=== PATIENT | female | born 1945 | race Caucasian/White ===

== ENCOUNTER 2017-06-05 21:06 | Inpatient (IN) | payer MEDICARE ==
[~2017-06-05] VITALS: Ht 162.6 cm; Wt 48.1 kg
[2017-06-05] MEDS ORDERED: ASPIRIN 81 MG CHEW TAB PO ONE (21:30)
[2017-06-05 22:01] LABS: BASOPHILS % 0.4 % (0.0-1.0); HEMATOCRIT 37.8 % (34.2-44.1); HEMOGLOBIN 12.2 g/dL (12.0-16.0); LYMPHOCYTES # (AUTO) 0.8 (1.0-3.2); LYMPHOCYTES % 8.9 % (18.0-39.1); MEAN CORPUSCULAR HEMOGLOBIN 29.4 pg (28-32); MEAN CORPUSCULAR HGB CONC 32.3 g/dL (31-35); MEAN CORPUSCULAR VOLUME 91.1 fL (81-99); MONOCYTES # (AUTO) 0.8 (0.2-0.8); MONOCYTES % 9.8 % (4.4-11.3); NEUTROPHILS # (AUTO) 6.8 (2.1-6.9); NEUTROPHILS % 80.4 % (38.7-80.0); PLATELET COUNT 221 x10e3/uL (140-360); RED BLOOD COUNT 4.15 x10e6/uL (3.6-5.1); RED CELL DISTRIBUTION WIDTH 13.2 % (11.7-14.4)
[2017-06-05 22:10] LABS: INR 1.02; PARTIAL THROMBOPLASTIN TIME 33.5 seconds (23.8-35.5); PROTHROMBIN TIME 13.9 seconds (11.9-14.5)
[2017-06-05 22:20] LABS: ALANINE AMINOTRANSFERASE 9 IU/L (0-55); ALBUMIN 3.1 g/dL (3.5-5.0); ALBUMIN/GLOBULIN RATIO 0.6 (0.8-2.0); ALKALINE PHOSPHATASE 104 IU/L (40-150); ANION GAP 13.7 mmol/L (8-16); BLOOD UREA NITROGEN 10 mg/dL (7-26); BUN/CREATININE RATIO 12 (6-25); CARBON DIOXIDE 24 mmol/L (22-29); CHLORIDE 98 mmol/L (98-107); CREATINE KINASE 103 IU/L (29-168); CREATININE, SERUM 0.86 mg/dL (0.57-1.11); EST GLOMERULAR FILTRATION RATE > 60 ML/MIN (60-); GLUCOSE 116 mg/dL (74-118); MAGNESIUM 1.4 MG/DL (1.3-2.1); POTASSIUM 3.7 mmol/L (3.5-5.1); SODIUM 132 mmol/L (136-145)
--- NOTE | 2017-06-05 22:24 | Diagnostic Imaging Report ---
EXAMINATION: Head CT without contrast. HISTORY:Fall. COMPARISON:None. TECHNIQUE: Multidetector axial images were obtained from the foramen magnum to the vertex without contrast. The images were reconstructed using brain and bone algorithms. Thin section brain images were reformatted into coronal and sagittal planes. Intravenous contrast: None IMAGE QUALITY: Acceptable. FINDINGS: Skull/scalp: No abnormality. Parenchyma: Nonspecific bilateral frontoparietal patchy white matter hypodensity are likely related to small vessel ischemic changes. Focal hypodensity in right thalamocapsular region represents age indeterminate lacunar infarct. Age indeterminate possible chronic lacunar infarct in anterior aspect of the body of right caudate. No acute hemorrhage, mass or acute major vascular territorial infarct. Arteries: Atherosclerotic calcification in bilateral carotid siphon. Dural sinuses: No abnormal density suggestive of thrombosis. Ventricles: No hydrocephalus or displacement. Extra-axial spaces: No abnormal density. Brain volume: Normal for age. Craniocervical junction: No mass, Chiari malformation, or basilar invagination. Sella: No mass. Paranasal/mastoid sinuses: Imaged portions unremarkable. IMPRESSION: 1. Age indeterminate lacunar infarct in right thalamocapsular region. Age indeterminate possible chronic lacunar infarct in right caudate. 2. Mild supratentorial white matter microvascular ischemic changes. 3. Mild generalized cerebral volume loss. Signed by: Dr. Dorinda Barrientos M.D. on 06/05/2017 10:20 PM
[2017-06-05 22:26] LABS: TROPONIN I 0.033 ng/mL (0-0.300)
--- NOTE | 2017-06-05 22:30 | Diagnostic Imaging Report ---
History: Fall. Comparison studies: None Technique: Axial images were obtained through the cervical region.. Coronal and sagittal images reconstructed from the axial data.. Intravenous contrast: None Findings: Fractures: None. Soft tissue injuries: None. Atlantoaxial articulation: Intact. Alignment: Normal lordosis. No scoliosis. Cervicomedullary junction: No abnormalities. The foramen magnum is patent. Soft tissues: No abnormalities. Vertebrae: No fractures, infection or neoplasm. Degenerative changes: Moderate degenerative changes in the anterior atlantodental joint. C3-C4: Posterior disc osteophyte complex results in mild canal stenosis. Moderate bilateral facet arthrosis without significant foraminal stenosis. C4-C5: Posterior disc osteophyte complex results in moderate canal stenosis. Mild right and moderate left foraminal stenosis due to facet and uncovertebral arthrosis. C5-C6: Posterior disc osteophyte complex without significant canal stenosis. Severe right foraminal stenosis due to facet and uncovertebral arthrosis. C7-T1: Bilateral mild foraminal stenosis due to facet and uncovertebral arthrosis. IMPRESSION: 1. No acute cervical spine abnormalities. 2. Ligament, spinal cord and or vascular abnormalities cannot be excluded on the basis of this examination. 3. Cervical spondylosis as detailed above. Signed by: Dr. Dorinda Barrientos M.D. on 06/05/2017 10:27 PM
--- NOTE | 2017-06-05 22:56 | Diagnostic Imaging Report ---
PELVIS AP 1-2 VIEWS HISTORY: Status post fall COMPARISON: None FINDINGS: Bones: Nondisplaced linear lucencies noted involving the medial aspect of the right inferior pubic ramus as well as the lateral aspect of the symphysis pubis. Osseous alignment is within normal limits. Joints: The joint spaces are well-maintained. Soft tissues: The soft tissues appear unremarkable. IMPRESSION: Findings are concerning for right-sided nondisplaced fracture of the right inferior pubic ramus and right symphysis pubis Signed by: Dr. Flako Cornejo M.D. on 06/05/2017 10:52 PM
--- NOTE | 2017-06-05 22:57 | Diagnostic Imaging Report ---
HUMERUS RIGHT 2+VIEWS HISTORY: Status post fall COMPARISON: None FINDINGS: Bones: No displaced fracture. Osseous alignment is within normal limits. Joints: The joint spaces are well-maintained. Soft tissues: There is soft tissue laceration/defect noted at the lateral aspect of the mid right arm. IMPRESSION: 1. No acute osseous abnormality. 2. Large soft tissue laceration/defect noted at the mid right arm Signed by: Dr. Flako Cornejo M.D. on 06/05/2017 10:53 PM
--- NOTE | 2017-06-05 22:58 | Diagnostic Imaging Report ---
EXAMINATION: CHEST 2 VIEWS INDICATION: Cough. COMPARISON: None FINDINGS: TUBES and LINES: None. LUNGS: Lungs are well inflated. Focal patchy airspace opacities noted in the right lung base and left midlung. PLEURA: No pleural effusion or pneumothorax. HEART AND MEDIASTINUM: The cardiomediastinal silhouette is unremarkable. There are atherosclerotic calcifications within the aorta. BONES AND SOFT TISSUES: No acute osseous lesion. Soft tissues are unremarkable. UPPER ABDOMEN: No free air under the diaphragm. IMPRESSION: Findings are suspicious for multifocal pneumonia. Follow-up until resolution after treatment is recommended to exclude underlying chronic process or neoplasm. Signed by: Dr. Flako Conrejo M.D. on 06/05/2017 10:55 PM
[2017-06-05 23:53] LABS: BILIRUBIN,URINE 1+ (NEGATIVE); KETONES,URINE 1+ (NEGATIVE); LEUKOCYTE ESTERASE ,URINE TRACE (NEGATIVE); NITRITE,URINE NEGATIVE (NEGATIVE); URINE UROBILINOGEN 1 mg/dL (0.2 - 1)
[2017-06-05 23:58] LABS: CLARITY,URINE SL CLOUDY (CLEAR); COLOR,URINE AMBER (YELLOW); PROTEIN,URINE DIPSTICK 1+ (NEGATIVE)
[2017-06-06] VITALS (7 sets, daily range): BP systolic 107–151; BP diastolic 55–71
[2017-06-06 00:04] LABS: BACTERIA,URINE FEW /HPF; EPITHELIAL CELLS,URINE FEW /LPF
[2017-06-06] MEDS: VANCOMYCIN 1GM/NS 250 ML 250 ML IV SCH ×3 (00:30→10:00)
--- NOTE | 2017-06-06 00:46 | Diagnostic Imaging Report ---
EXAM: CT Chest WITHOUT contrast 06/05/2017 11:29 PM INDICATION: Pneumonia versus mass COMPARISON: Chest x-ray on 06/05/2017 TECHNIQUE: Chest was scanned utilizing a multidetector helical scanner from the lung apex through the level of the adrenal glands without administration of IV contrast. Absence of intravenous contrast decreases sensitivity for detection of lymphadenopathy and vascular pathology. Coronal and sagittal reformations were obtained. Routine protocol was performed. IV CONTRAST: None RADIATION DOSE: Total DLP: 481.30 mGy*cm Estimated effective dose: (DLP x 0.014 x size factor) mSv COMPLICATIONS: None FINDINGS: LINES/ TUBES: None. LUNGS AND AIRWAYS: Centrilobular emphysema present with upper lobe predominance There are a total of 3 well-circumscribed pulmonary nodules, the largest center in the left upper lobe measuring 2 cm in diameter with spiculated margins. There is a right lower lobe, superior segment nodule measuring 1.5 cm in diameter in the subpleural location. There is a right middle lobe pulmonary nodule measuring 1.4 cm in diameter in the lateral segment. Airways are normal. PLEURA: The pleural spaces are clear. HEART AND MEDIASTINUM: The thyroid gland is normal. Right lower paratracheal adenopathy measuring 1.4 cm in short axis on image 55. The heart is normal in size.. There is no pericardial effusion. There are moderate atherosclerotic calcifications in the aorta and coronary arteries. UPPER ABDOMEN: Limited non-contrast views of the upper abdomen show no abnormality within the visualized liver, spleen, pancreas, or kidneys. The adrenal glands are normal. BONES: There are degenerative changes in the thoracic spine. SOFT TISSUES: Unremarkable. IMPRESSION: 1. Findings in the chest are compatible with multifocal pulmonary nodules suspicious for neoplasm in this patient with background of COPD. The largest pulmonary nodule is located in the left upper lobe. 2. No evidence of pneumonia. Signed by: Dr. Flako Cornejo M.D. on 06/06/2017 12:43 AM
[2017-06-06] MEDS: PIPER-TAZ 3.375 GM 50 ML IV SCH ×4 (01:15→21:53)
[2017-06-06] MEDS ORDERED: PIPERACILLIN/TAZO 4.5 GM 100 ML IV ONE (01:15)
[2017-06-06] MEDS ORDERED: DEXTROSE 5%/0.45% SOD CHL 1,000 ML IV ONE (02:15)
[2017-06-06] MEDS: IPRATROPIUM BROMIDE 0.02% 2.5 ML NEB NEB SCH ×4 (04:05→18:50)
[2017-06-06] MEDS: ALBUTEROL SULF 0.083% NEB SOLN 3 ML NEB NEB SCH ×4 (04:05→18:50)
[2017-06-06] MEDS ORDERED: PIPER-TAZ 3.375 GM 100 ML IV SCH ×2 (06:30→14:00)
[2017-06-06] MEDS: AZITHROMYCIN 500MG/NS 250 ML 250 ML IV SCH ×2 (08:30)
[2017-06-06 09:00] LABS: TROPONIN I 0.049 ng/mL (0-0.300)
[2017-06-06 10:25] LABS: CHOL/HDL RATIO 3.9 (3.0-3.6)
--- NOTE | 2017-06-06 10:43 | History and Physical ---
PRIMARY CARE PHYSICIAN: None CHIEF COMPLAINT: Fall. HISTORY OF PRESENT ILLNESS: A 72-year-old woman with a history of tobacco abuse, who has not seen a doctor in over 10 years. Does not have a primary care physician. Now, falling on 2 occasions at home. Therefore, brought to the hospital by her daughter. Patient was found to have subacute versus chronic stroke, unclear. She was found to have a urinary tract infection. Imaging also revealed multiple lung nodules as large as 2 cm. She has lost 10 pounds of undetermined length of time. She continues to smoke cigarettes, about a quarter pack a day. Patient also found to have right upper arm wound, which she states she has had for the past 4 years, and has hidden from her [id number] who is present in the room and from her son. Patient has also been coughing the past few days. PAST MEDICAL HISTORY: Right upper arm wound, ongoing for about 4 years, tobacco abuse. PAST SURGICAL HISTORY: Unknown. ALLERGIES: PER ELECTRONIC MEDICAL RECORD. FAMILY HISTORY/SOCIAL HISTORY: Patient is single. She lives with her son and [id number]. No alcohol. She smokes a quarter pack of cigarettes per day. She has a family history of colon cancer in her sister recently diagnosed. MEDICATIONS: None. REVIEW OF SYSTEMS: Denies any chest pain or shortness of breath. PHYSICAL EXAMINATION VITAL SIGNS: Have been reviewed. GENERAL: A tired-appearing woman resting in bed. HEENT: Anicteric. CARDIOVASCULAR: Normal S1 and S2. LUNGS: She has coarse breath sounds. Coughing with deep inspiration. ABDOMEN: Soft, nontender and nondistended. EXTREMITIES: She has right upper arm lateral border with large and deep ulcer with pink tissue, tender. No odor. Also, wound at least 4 inches wide. Lower extremities with no edema. She has some bruising of the right knee. SKIN: Dry. PSYCHIATRIC: Flat affect. NEUROLOGICAL: Alert and oriented times 3. Moving all extremities. LABS: Reviewed. MEDICATIONS: Reviewed. ASSESSMENT AND PLAN: A 72-year-old woman with: 1. Fall: Likely secondary to urinary tract infection, but could be secondary to acute stroke. Will get physical therapy on board. 2. Subacute versus acute stroke: Will obtain an MRI to further evaluate. Will obtain lipid panel. 3. Multiple lung nodules as large as 2 cm: Will get radiology on board for biopsy. Will consult pulmonary services to assist in management. 4. Acute bronchitis: Continue azithromycin. 5. Right arm large wound: Will get wound culture. Will continue Zosyn and vancomycin. Will get surgical team on board for evaluation and specialist physician on board to assist in management. 6. Urinary tract infection: Continue Zosyn. 7. Physical deconditioning: Physical therapy consultation. 8. Prophylaxis: Will use sequential compression devices. 9. Disposition: As noted above, continue antibiotics and follow up cultures. Obtain MRI of the brain. Job#: [id number] RI
[2017-06-06] MEDS ORDERED: LIDOCAINE 1% 5ML-MPF INJ ONE (11:15)
[2017-06-06] MEDS: TRAMADOL HCL 50 MG TAB PO PRN ×2 (12:32→23:10)
--- NOTE | 2017-06-06 15:33 | Consultation ---
DATE OF CONSULTATION: June 06, 2017 REASON FOR CONSULTATION: Evaluate and assist in the management of a patient with COPD and a right arm wound. Information is gathered from the current medical record. I interviewed the patient at the bedside. She is a 72-year-old female who gives no significant medical history, except that according to her she developed a mole over the right upper arm about 5 years ago, which she has manipulating. It ulcerated. The ulcer had gotten progressively bigger. Recently, it has become painful associated with bleeding. There has been no fevers, which prompted her to come with the family to the emergency room for evaluation. The patient also reports that she has a chronic cough, which has gotten worse recently. For the most part, it is nonproductive. There is no associated chest pain. In the emergency room, she was found with a temperature of 99.9 degrees Fahrenheit, pulse rate of 119, respiratory rate of 18, and blood pressure of 107/59. Her CBC showed a white count of 8.5, hemoglobin 12.2 and platelet count 221,000. Serum creatinine was found to be 0.8. She had blood and urine cultures sent. She was started on azithromycin, vancomycin and Zosyn. The patient denies any history of diabetes, hypertension, cardiac, renal, liver disease. She is not aware of the diagnosis with COPD. SOCIAL HISTORY: She has been smoking since the age of 16. She denies alcohol abuse. She denies other forms of recreational drug use. The family reports that she is fairly independent. The patient reports that she has hidden the wound from her family all this time. FAMILY HISTORY: Noncontributory to her current hospitalization. ALLERGIES: SHE HAS NO KNOWN ALLERGIES. As reported earlier, she is on azithromycin, vancomycin and Zosyn. The rest of her medications are per the medication administration report. REVIEW OF SYSTEMS: The patient is alert. Her sensorium is clear. She has a productive sounding cough. No respiratory distress at rest. No headache or neck stiffness. No sore throat. No visual or auditory complaints. No chest or abdominal pain. No nausea, vomiting or diarrhea. No frequency or dysuria. There is pain in the right arm. PHYSICAL EXAMINATION GENERAL: She is an adult woman. She is alert and responsive. She appears frail. She is in no acute distress. VITALS: Maximum temperature was at presentation of 99.9 degrees Fahrenheit, temperature currently 97.3. She is hemodynamically stable. HEENT: There is no pallor. No icterus. No oropharyngeal lesions. NECK: Supple. CHEST: Symmetric. There is rhonchi in the lung [place] bilaterally. HEART: Sounds are regular without any significant murmur. ABDOMEN: Soft and nontender with normal bowel sounds. EXTREMITIES: There is no acute erythema of the lower extremities or the left upper extremity. There is a fungating ulcer involving the right upper arm. The periphery of the wound has gangrenous necrotic slough. There is persistent bleeding from the base of the wound. Her creatinine is 0.8 from June 05, 2017. Liver function tests are unremarkable. Her white count is 8.5, hemoglobin 12.2 and platelet count 221,000. Differential on the white count is 80% neutrophils on an automated differential. Blood and urine cultures are pending. CT of the chest reports multifocal pulmonary nodules suspicious for neoplasm. There is a background of COPD. No evidence of pneumonia. CT of the brain shows age indeterminate lacunar infarct in the right thalamic capsular region. There is mild supratentorial white matter microvascular ischemic changes. There is mild generalized cerebral volume loss. Plain film of the humerus reports no acute osseous abnormality. There is a large soft tissue defect in the midright arm. IMPRESSION: This 72-year-old woman has a fungating ulcer on the right arm with gangrenous circumferential borders. It is highly suspicious for malignancy. Superimposed infection cannot be ruled out. She has chronic obstructive pulmonary disease with exacerbation. I suggest the regimen of vancomycin, Zosyn and azithromycin is appropriate. Follow up on her cultures. She needs urgent surgical evaluation for biopsy of the right arm lesion and possibly the lung lesions. Monitor temperature, CBC and renal function. Continue local wound care. I have discussed the findings and treatment with the patient and her family at the bedside. I will discuss the patient with the primary physician who I thank for this consult, and opportunity to participate in the patient's care. Job#: [id number] SELINA
--- NOTE | 2017-06-06 16:01 | Consultation ---
DATE OF CONSULTATION: June 06, 2017 WOUND CONSULTATION Thank you Dr. Hsieh for asking me to see this patient. A 72-year-old female patient admitted following a fall. Routine evaluation revealed multiple lung nodules. The largest was 1 cm. She also has nonhealing chronic ulcer to the right arm, ongoing for 4 years. Wound consult was called. PAST MEDICAL HISTORY: Right arm ulcer. PAST SURGICAL HISTORY: Unknown. ALLERGIES: NONE. MEDICATIONS: None. PHYSICAL EXAMINATION GENERAL: Awake, alert. HEENT: Normal. NECK: Normal. LUNGS: Clear. CVS: Normal. ABDOMEN: Soft. Bowel sounds normal. EXTREMITIES: Lower extremities with no edema. 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 ASSESSMENT : Right arm ulcer most likely malignant ulcer. PLAN: Will consider biopsy of the right arm wound. Apply Hydrogel, 4 x 4, Kerlix and tape. Job#: [id number]
[2017-06-06 16:56] LABS: CREATINE KINASE MB 1.3 ng/mL (0.00-5.00); TROPONIN I 0.035 ng/mL (0-0.300)
--- NOTE | 2017-06-06 17:03 | Diagnostic Imaging Report ---
Exam: Brain MRI without IV contrast History: Acute versus chronic CVA, multiple falls over past several days. Comparison studies: Head CT 06/05/2017 Technique: Sagittal T2; axial DWI, FLAIR, T2*GRE, T1, Coronal T2 FLAIR. Intravenous contrast: None Findings: Scalp: Normal in signal . No masses . Bone marrow: Normal in signal intensity. Brain sulci: Mildly prominent. Ventricles: Mild compensatory dilatation. No hydrocephalus. Extra axial spaces: No mass, no fluid collection. Parenchyma: No masses, hemorrhage or acute ischemia. There are small chronic lacunar infarcts in the right thalamus and in the right frontal periventricular white matter adjacent to the body of the right caudate nucleus. A few scattered and mildly confluent T2 FLAIR hyperintense foci in the supratentorial white matter are nonspecific but most compatible with chronic small vessel ischemic changes. Suprasellar region: No abnormalities. Craniocervical junction: Patent foramen magnum. No Chiari malformation. Vessels: Normal flow-voids in the arteries and sinuses. Incidental finds: Nonspecific marrow signal changes in the partially imaged posterior right mandibular body. Cannot differentiate reactive changes, possibly related to endodontal periodontal disease from other mandibular lesion on this exam. IMPRESSION: 1. No acute intracranial abnormalities. Specifically, no acute ischemia. 2. Mild supratentorial chronic microvascular ischemic changes. 3. Chronic lacunar infarcts in the right thalamus and deep right frontal white matter adjacent to the right caudate nucleus. 4. Nonspecific indeterminant marrow signal changes in the partially imaged right mandible. Nonemergent maxillofacial CT may further evaluate. Signed by: Dr. Conrado Orlando M.D. on 06/06/2017 4:59 PM
--- NOTE | 2017-06-06 17:59 | Consultation ---
DATE OF CONSULTATION: June 06, 2017 PULMONARY/CRITICAL CARE CONSULTATION REFERRING PHYSICIAN: Dr. Cipriano Hsieh CHIEF COMPLAINT: Pulmonary nodules. HISTORY OF PRESENT ILLNESS: The patient is a 72-year-old woman. She came into the hospital after frequent falling. She was evaluated by neurology and considered to have a possible stroke. She had an MRI, but is awaiting the results. She had an incidental finding of pulmonary nodules. Her CT scan shows 3 separate pulmonary nodules as well as a large right paratracheal node. The largest nodule is in the left upper lobe and measures 2 cm. There is also 2 smaller nodules measuring 1.4 and 1.5 cm in the right lower lobe and right middle lobe respectively. Patient reports a 10 to 15 pound weight loss. There is some cough but no aide hemoptysis. The patient does not have any fevers. She was also found to have a deep fungating sore on the right upper arm. This was suspicious for cancer and she had a biopsy done today. PAST MEDICAL HISTORY: Right upper arm wound. Possible COPD. PAST SURGICAL HISTORY: Noncontributory. ALLERGIES: THERE ARE NO KNOWN DRUG ALLERGIES. FAMILY HISTORY: There is a history of colon cancer in the family. SOCIAL HISTORY: The patient is a lifelong smoker. She is not a drinker. REVIEW OF SYSTEMS: She does have some weight loss. She has no fevers. There is no headache. She has no neck pain. She has no chest pain. She has no congestion. She has no abdominal pain. There is no nausea or vomiting. She has no leg edema. She does have a bandaged sore on the upper arm. PHYSICAL EXAMINATION: VITAL SIGNS: The patient is afebrile. Blood pressure is 120/58. The O2 saturation 97%. HEENT: Examination shows no facial swelling or erythema. The nasal mucosa is normal. The oropharynx is normal. LYMPHATIC: Examination shows no submandibular, cervical or supraclavicular adenopathy. NECK: Examination of neck shows no JVD or thyromegaly. No nuchal rigidity. CARDIAC: Exam reveals a regular rate and rhythm with normal S1 and S2. There are no murmurs or rubs. LUNGS: Shows clear breath sounds bilaterally. There is no wheezing. ABDOMEN: Soft and nontender. There is no rebound or guarding. EXTREMITIES: Shows no leg edema or calf tenderness. There is no cyanosis or clubbing. NEUROLOGIC: Exam shows no focal abnormalities. SKIN: Examination shows no rashes. IMPRESSION 1. Pulmonary nodules in both lungs suggestive of possible metastatic disease. 2. Frequent falling and possible cerebrovascular accident. 3. Deep fungating ulcer on the right upper extremity suggestive for some type of malignancy. RECOMMENDATIONS: 1. We will await the biopsy result from the arm and the MRI results of the head prior to proceeding further. 2. If the arm biopsy does show a sarcoma or a melanoma, that could be the source of the metastatic disease. 3. If the biopsy shows a squamous cell carcinoma or basal cell carcinoma, then a lung biopsy would probably be indicated. 4. I discussed this with the family, the patient and with Dr. Hsieh. Job#: [id number] REBECCA
[2017-06-07] VITALS (7 sets, daily range): BP systolic 105–147; BP diastolic 51–62
[2017-06-07] MEDS: ALBUTEROL SULF 0.083% NEB SOLN 3 ML NEB NEB SCH ×5 (01:00→19:40)
[2017-06-07] MEDS: IPRATROPIUM BROMIDE 0.02% 2.5 ML NEB NEB SCH ×5 (01:00→19:40)
[2017-06-07] MEDS: PIPER-TAZ 3.375 GM 50 ML IV SCH ×3 (06:15→21:30)
[2017-06-07 07:54] LABS: BASOPHILS % 0.3 % (0.0-1.0); EOSINOPHILS % 0.2 % (0.0-6.0); HEMATOCRIT 32.6 % (34.2-44.1); HEMOGLOBIN 10.5 g/dL (12.0-16.0); LYMPHOCYTES % 16.4 % (18.0-39.1); MEAN CORPUSCULAR HEMOGLOBIN 30.3 pg (28-32); MEAN CORPUSCULAR HGB CONC 32.2 g/dL (31-35); MEAN CORPUSCULAR VOLUME 93.9 fL (81-99); MONOCYTES # (AUTO) 0.9 (0.2-0.8); MONOCYTES % 13.7 % (4.4-11.3); NEUTROPHILS # (AUTO) 4.3 (2.1-6.9); NEUTROPHILS % 69.2 % (38.7-80.0); PLATELET COUNT 168 x10e3/uL (140-360); RED BLOOD COUNT 3.47 x10e6/uL (3.6-5.1); RED CELL DISTRIBUTION WIDTH 13.4 % (11.7-14.4)
[2017-06-07 08:17] LABS: ALANINE AMINOTRANSFERASE 11 IU/L (0-55); ALBUMIN 2.4 g/dL (3.5-5.0); ALBUMIN/GLOBULIN RATIO 0.6 (0.8-2.0); ALKALINE PHOSPHATASE 81 IU/L (40-150); ANION GAP 12.7 mmol/L (8-16); BLOOD UREA NITROGEN 8 mg/dL (7-26); BUN/CREATININE RATIO 12 (6-25); CALCIUM 8.1 mg/dL (8.4-10.2); CARBON DIOXIDE 23 mmol/L (22-29); CHLORIDE 103 mmol/L (98-107); CREATININE, SERUM 0.68 mg/dL (0.57-1.11); EST GLOMERULAR FILTRATION RATE > 60 ML/MIN (60-); GLUCOSE 87 mg/dL (74-118); POTASSIUM 3.7 mmol/L (3.5-5.1); SODIUM 135 mmol/L (136-145)
[2017-06-07] MEDS: AZITHROMYCIN 500MG/NS 250 ML 250 ML IV SCH (08:56)
--- NOTE | 2017-06-07 09:22 | Progress Note ---
DATE: June 07, 2017 TIME: 9 a.m. OVERNIGHT: Underwent biopsy of the right arm ulcer. REVIEW OF SYSTEMS: Denies any dizziness. VITAL SIGNS: Reviewed. PHYSICAL EXAMINATION GENERAL: A tired-appearing woman resting in bed. HEENT: Anicteric. CARDIOVASCULAR: Normal S1 and S2. LUNGS: Moderate breath sounds. Coarseness of breath sounds has improved to some degree. ABDOMEN: Soft, nontender and nondistended. EXTREMITIES: Right upper arm with lateral border large ulcer. Dressing in place. There is no odor. SKIN: Dry. PSYCHIATRIC: Flat affect. NEUROLOGICAL: Alert and oriented times 3. Moving all extremities. LABS: Reviewed. MEDICATIONS: Reviewed. ASSESSMENT AND PLAN: A 72-year-old woman. 1. Fall. 2. Subacute versus acute stroke. 3. Multiple lung nodules, largest 2 cm. 4. Right arm large wound, status post biopsy. 5. Acute bronchitis. 6. Urinary tract infection. 7. Physical deconditioning. 8. Right mandible nonspecific, indeterminate signal seen on MRI imaging. PLAN 1. All cultures are negative. 2. Continue IV Zosyn, IV vancomycin and IV azithromycin. 3. Follow up biopsy on the right arm ulcer. 4. MRI of the brain shows no acute abnormalities. Chronic lacunar infarcts, right thalamus and deep right frontal white matter and right caudate nucleus lacunar infarcts noted. 5. Nonspecific, indeterminate signal seen at the right mandible. Job#: [id number]
[2017-06-07] MEDS: TRAMADOL HCL 50 MG TAB PO PRN ×2 (09:48→18:03)
[2017-06-07] MEDS: VANCOMYCIN 1GM/NS 250 ML 250 ML IV SCH (10:20)
--- NOTE | 2017-06-07 11:30 | Consultation ---
DATE OF CONSULTATION: June 07, 2017 Patient is a 72-year-old female who was admitted to the hospital after a fall. She has been found to have a large wound on the right upper arm with multiple pulmonary nodules. She says she started with a small lesion on the arm many years ago, and has gradually increased in size. Biopsy were done, results of which are pending. She is also scheduled to have lung biopsy. PAST MEDICAL HISTORY: Significant for tobacco use, large right upper arm wound. ALLERGIES: SHE HAS NO KNOWN ALLERGIES. MEDICATIONS: Are listed in the chart. No previous surgeries. FAMILY HISTORY: Significant for carcinoma of the colon. SOCIAL HISTORY: The patient is a life-long smoker. She does not drink alcohol. REVIEW OF SYSTEMS: Significant for a small amount of weight loss. No abdominal pain. No chest pain. PHYSICAL EXAMINATION GENERAL: The patient is awake and alert. VITAL SIGNS: Normal. HEENT: Revealed no scleral icterus. NECK: Has no masses. LUNGS: Equal breath sounds. Clear bilaterally. CARDIAC: Regular rate and rhythm. ABDOMEN: Soft. There is no tenderness. No mass. EXTREMITIES: On the right upper arm, there is a large ulcerated area with granulation tissue. There is no right axillary lymphadenopathy. NEUROLOGIC: Grossly intact. ASSESSMENT: A 72-year-old female with an ulcerated lesion on the right upper arm. It is most likely carcinoma. 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 Biopsies have been done. Results are pending. Patient likely will need evaluation by oncology. Then she may require excision of this ulcerated area on the arm with skin graft. Thank you for asking me to see Ms. Berger. Job#: [id number] SELINA
[2017-06-07] MEDS ORDERED: SODIUM CHLORIDE 0.9% 250ML 250 ML ONE (14:10)
--- NOTE | 2017-06-07 14:11 | Progress Note ---
DATE: June 07, 2017 INFECTIOUS DISEASE PROGRESS NOTE The patient is resting quietly. She has a productive cough. No dyspnea at rest. No nausea, vomiting, or diarrhea. No other systemic complaints reported. PHYSICAL EXAMINATION VITALS: In the past 24 hours, maximum temperature was up to 99.1 degrees Fahrenheit. She is stable hemodynamically. HEENT: There is no gross pallor. No obvious icterus. No oropharyngeal lesions. NECK: Supple. CHEST: Symmetric. Breath sounds are coarse in the lung [place]. HEART: Sounds are regular. There is no new murmur. ABDOMEN: Soft. Bowel sounds are present. EXTREMITIES: No acute erythema of the extremities. The right arm wound dressing is intact and clean. Her white count is 6.2, hemoglobin 10.5, platelet count 168. Her creatinine is 0.6. Blood cultures from June 05, 2017 are negative. Urine culture is negative. IMPRESSION: She has chronic obstructive pulmonary disease with exacerbation. She has a fungating wound of the right upper arm, suspicious for malignancy. I am told by the nursing staff and family at the bedside that a biopsy was obtained yesterday, no report is yet available. There is an MRI of her brain from June 06, 2017 that reported no acute abnormalities. I suggest continue current management. Monitor temperature, CBC, and renal function. Followup on the biopsies. Continue local wound care. Job#: [id number] BETTIE
[2017-06-08 00:42] VITALS: BP 114/54
[2017-06-08] MEDS: IPRATROPIUM BROMIDE 0.02% 2.5 ML NEB NEB SCH ×4 (01:30→16:10)
[2017-06-08] MEDS: ALBUTEROL SULF 0.083% NEB SOLN 3 ML NEB NEB SCH ×4 (01:30→16:10)
[2017-06-08 04:00] VITALS: BP 141/63
[2017-06-08] MEDS: PIPER-TAZ 3.375 GM 50 ML IV SCH ×2 (06:12→14:07)
[2017-06-08 07:53] VITALS: BP 127/60
[2017-06-08] MEDS: AZITHROMYCIN 500MG/NS 250 ML 250 ML IV SCH (09:29)
[2017-06-08] MEDS: VANCOMYCIN 1GM/NS 250 ML 250 ML IV SCH (10:45)
[2017-06-08 12:02] VITALS: BP 110/53
--- NOTE | 2017-06-08 14:19 | Progress Note ---
DATE: June 08, 2017 The patient is resting quietly on oxygen by nasal cannula. There is dyspnea with minimal exertion. Otherwise, in no acute distress. No report of vomiting. No report of diarrhea. No overt medication reaction reported. PHYSICAL EXAMINATION VITALS: In the past 24 hours, maximum temperature was up to 99.1 degrees Fahrenheit. She is stable hemodynamically. HEENT: There is no pallor. No icterus. No oropharyngeal lesions. NECK: Supple. CHEST: Symmetric. Breath sounds are coarse in the lung [place]. HEART: Sounds are regular. There is no new murmur. ABDOMEN: Soft. Bowel sounds are present. EXTREMITIES: No acute erythema of the extremities. Her right arm dressing is intact. Her white count was 6.2. Her creatinine 0.6. There are no positive culture reports. IMPRESSION: She has a fungating ulcer of the right arm of unclear etiology, is concerning for malignancy. She has pulmonary lesions concerning for metastasis. She has COPD. I suggest continue current management. I am told a specimen from the wound was sent for pathology, report is not available. Continue local wound care. Job#: [id number] NAVEED
--- NOTE | 2017-06-08 14:31 | Discharge Summary ---
PRINCIPAL DIAGNOSES 1. Fall with subacute versus acute stroke. 2. Multiple lung nodules, largest 2 cm. 3. Right arm large wound, possibly cancer, biopsy pending. 4. Acute bronchitis. 5. Urinary tract infection, culture negative. 6. Physical deconditioning. 7. Right mandible nonspecific and indeterminate signal seen on magnetic resonance imaging. SECONDARY DIAGNOSIS: Cigarette use. CHIEF COMPLAINT: Fall. HISTORY OF PRESENT ILLNESS: A 73-year-old woman with fall. Please refer to the H and P for further details. HOSPITAL COURSE: Patient fell at home. Imaging showed she had no fractures. Imaging showed subacute versus acute stroke. MRI was not very helpful. She has multiple lung nodules and largest 2 cm. She also had a right arm large wound, which had been there for about 4 years per the patient. She underwent biopsy, results are pending. She had acute bronchitis and urinary tract infection, treated with antibiotics. She had physical deconditioning, received physical therapy. Imaging also showed right mandible nonspecific and indeterminate signal seen on the MRI. Patient needs continued care and continue IV antibiotics. Continue followup with the right arm wound and possible further evaluation of the pulmonary nodules. We got oncology on board, but at this time, patient will be transitioned to [facility], at which point we will consult oncology and continue with current medical management and follow biopsy results for further care. DISCHARGE MEDICATIONS: Per electronic medical record. FOLLOWUP: With the medical team at [facility]. CONDITION ON DISCHARGE: Stable. VINI ZEPEDA MD Job#: [id number] LORRI
[2017-06-08 15:55] VITALS: BP 137/57
== END 2017-06-08 16:50 | DRG 190 ==
LOC: ER 21:06 → MED/SURG3 06-06 02:45
PROVIDERS: ADMIT Internal Medicine; ATTEND Internal Medicine
PROC: 0HBBXZX Excision of Right Upper Arm Skin, External Approach, Diagnostic (ICD-10-PCS; principal; 2017-06-06)
DX: J44.1 Chronic obstructive pulmonary disease with (acute) exacerbation (principal); E43 Unspecified severe protein-calorie malnutrition; N39.0 Urinary tract infection, site not specified; Z68.1 Body mass index [BMI] 19.9 or less, adult; C44.612 Basal cell carcinoma of skin of right upper limb, including shoulder; J44.0 Chronic obstructive pulmonary disease with (acute) lower respiratory infection; J20.9 Acute bronchitis, unspecified; Z72.0 Tobacco use; R91.8 Other nonspecific abnormal finding of lung field; T14.8XXA Other injury of unspecified body region, initial encounter; W19.XXXA Unspecified fall, initial encounter
CPT/HCPCS: 36415; 70450; 70551; 71046; 71250; 72125; 72170; 80053; 80061; 81001; 82550; 82553; 83605; 83735; 84484; 85025; 85610; 85730; 87040; 87086; 87400; 88305; 93005; 94640; 96361; 97139; 99284; J0456; J2543; J3370; J7050